=== PATIENT | male | born 1975 | race Caucasian/White ===

== ENCOUNTER 2016-09-01 23:44 | Inpatient (IN) | payer MEDICAID ==
[~2016-09-01] VITALS: Ht 182.9 cm; Wt 93.5 kg
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
[2016-09-02 00:04] LABS: BASOPHIL # 0.1 K/uL (0.0-0.2); BASOPHIL % 0.5 %; EOSINOPHIL # 0.1 K/uL (0.0-0.5); HEMATOCRIT 42.3 % (37.0-53.0); HEMOGLOBIN 14.7 g/dL (12.0-17.0); IMMATURE GRANULOCYTE # 0.3 K/uL (0.0-0.3); IMMATURE GRANULOCYTE % 2.2 %; LYMPHOCYTE # 4.2 K/uL (0.8-4.0); LYMPHOCYTE % 33.7 %; MCH 35.4 pg (27.0-34.0); MCHC 34.8 gm/dL (32.0-36.5); MCV 101.9 fl (83.0-98.0); MONOCYTE # 0.8 K/uL (0.0-1.0); MONOCYTE % 6.4 %; MPV 9.4 fl (9.4-12.4); NEUTROPHIL % 56.2 %; NRBC % 0 /100WBC (0-0.00); PLATELET COUNT 336 K/uL (150-450); RBC 4.15 M/uL (4.00-6.00); RDW-CV 12.8 % (11.9-14.6); WBC 12.4 K/uL (4.0-11.0)
[2016-09-02 00:14] LABS: INR - (THERAPEUTIC) 0.98 (0.92-1.07); PROTIME 10.3 SECONDS (9.8-11.4); PTT 23 SECONDS (25-32)
[2016-09-02 00:25] LABS: BICARBONATE 22.9 mmol/L (18.0-23.0); PCO2 46 mmHg (35-45); PO2 197 mmHg (80-90)
[2016-09-02 00:26] LABS: ANION GAP 10.9 (10.0-19.0); CHLORIDE 110 mMol/L (96-110); POTASSIUM 2.9 mEq/L (3.7-5.1); SODIUM 142 mEq/L (135-145)
[2016-09-02 00:27] LABS: BLOOD UREA NITROGEN 7 mg/dL (6-24); CREATININE 0.9 mg/dL (0.6-1.3)
[2016-09-02 01:08] LABS: BILIRUBIN URINE NEGATIVE (NEGATIVE); BLOOD URINE 25 /UL (NEGATIVE); COLOR URINE YELLOW (YELLOW); GLUCOSE URINE NEGATIVE (NEGATIVE); KETONE URINE NEGATIVE (NEGATIVE); LEUKOCYTES URINE NEGATIVE /UL (NEGATIVE); NITRITE URINE NEGATIVE (NEGATIVE); PROTEIN URINE NEGATIVE (NEGATIVE); SPEC GRAVITY URINE 1.015 (1.003-1.035); TURBIDITY URINE CLEAR (CLEAR); UROBILINOGEN URINE NORMAL (NORMAL)
[2016-09-02 01:15] LABS: WBC URINE NEGATIVE #/HPF (NEGATIVE)
[2016-09-02 01:16] LABS: BACTERIA URINE RARE (NEGATIVE); EPITHELIAL URINE NEGATIVE #/HPF (NEGATIVE)
[2016-09-02 04:36] LABS: BICARBONATE 22.1 mmol/L (18.0-23.0); PCO2 42 mmHg (35-45)
[2016-09-02 04:38] LABS: PO2 92 mmHg (80-90)
[2016-09-02 05:15] LABS: BASOPHIL % 0.2 %; EOSINOPHIL % 0.2 %; HEMATOCRIT 40.2 % (37.0-53.0); IMMATURE GRANULOCYTE # 0.1 K/uL (0.0-0.3); IMMATURE GRANULOCYTE % 0.6 %; LYMPHOCYTE # 3.4 K/uL (0.8-4.0); LYMPHOCYTE % 16.8 %; MCH 35.3 pg (27.0-34.0); MCHC 34.8 gm/dL (32.0-36.5); MCV 101.3 fl (83.0-98.0); MONOCYTE # 2.1 K/uL (0.0-1.0); MONOCYTE % 10.5 %; MPV 9.3 fl (9.4-12.4); NEUTROPHIL # (ANC) 14.5 K/uL (1.4-9.0); NEUTROPHIL % 71.7 %; NRBC % 0 /100WBC (0-0.00); PLATELET COUNT 317 K/uL (150-450); RBC 3.97 M/uL (4.00-6.00); RDW-CV 12.9 % (11.9-14.6)
[2016-09-02 05:16] LABS: WBC 20.2 K/uL (4.0-11.0)
[2016-09-02 05:34] LABS: ALBUMIN 3.4 gm/dL (3.5-5.0); ANION GAP 15.3 (10.0-19.0); CALCIUM 7.9 mg/dL (8.5-10.5); CREATININE 0.9 mg/dL (0.6-1.3); POTASSIUM 3.3 mMol/L (3.7-5.1); TOTAL BILIRUBIN 0.3 mg/dL (0.0-1.5); TOTAL PROTEIN 6.7 g/dL (6.0-8.4)
--- NOTE | 2016-09-02 05:35 | NUR ---
PT. ARRIVED AT ICU 0145 WITH 8.0 ETT 24 @ LIP, SECURED WITH ETAD. ETCO2 34-40. BREATH SOUNDS ARE SLIGHTLY COARSE T/O. SUCTIONED A SMALL AMOUNT OF THICK BLOODY SECRETIONS. FIO2 30% WITH SATS 98-100%. PLAN TO WEAN AND EXTUBATE TODAY.
--- NOTE | 2016-09-02 06:59 | NUR ---
Significant Event: PT ARRIVED TO ICU AT 0200 INTUBATED AND SEDATED ON PROPOFOL AT 100 MCG/KG/MIN. PROPOFOL WEANED TO 50 MCG/KG/MIN AT BY TIME OF SHIFT CHANGE. HIGHLY AGITATED WITH MINIMAL STIMULATION BUT WILL STAY RESTING IF NOT BOTHERED. OVERBREATHES SET VENT RATE. SR ON MONITOR, HR IN 70S, BP WNL, AFEBRILE. OGT TO LIS DRAINING PINK CLEAR LIQUID; UNABLE TO ASSESS MOUTH TO SEE IF PATIENT BIT TOUNGE/LIP/CHEEK, BUT CYNDEE BLOOD IS PRESENT WHEN PERFORMING ORAL CARES. MAI REMAINS IN PLACE AND PATENT. LACERATION ABOVE EYE BROW AND L) EYE CONTINUE TO OOZE BLOOD. Follow up: WEAN SEDATION AND EXTUBATE TODAY. JYOTHI CUMMINGS RN
[2016-09-02] MEDS ORDERED: LEXAPRO10 MG PO (10:30)
--- NOTE | 2016-09-02 17:00 | NUR ---
PT ALERT, D/O AT TIMES BUT RE-ORIENTS EASILY, COMBATIVE AND CIWA SCORING Q1H THIS SHIFT D/T FREQUENT FLUCTUATION FROM 3-22, WITH VAILUM TOTAL OF 25MG GIVEN THIS SHIFT; LAST AT 1700. NORCO AND PERCOCET GIVEN THIS SHIFT WITH LAST DOSES AROUND 1600 AND FENT 100MCG GIVEN NEARLY Q2H FOR SHIFT. C/O PAIN TO L) SHOULDER, L) ANKLE AND NECK, BUT REFUSES TO WEAR L) ARM SLING AND UPPER [place] J. BANNA BAG AND NS IVF RUNNING PER L) WRIST PIV. BS HYPO, FAIR INTAKE, SWALLOWS FINE, MAI DC'D THIS AM D/T PT REQUEST AND ADEQ POST-VOID. FACIAL LACS WITH SUTURES AND OPTH EXAM THIS LATE AFTERNOON AND AUGMENTIN ORDERED FOR 10 DAYS. ENT SAW PT WITH NO CHANGES, LLE BOOT PLACED AND PT TO BE NON-WEIGHT BEARING. VSS, T-MAX 100.7 THIS AFTERNOON.
--- NOTE | 2016-09-03 03:57 | NUR ---
Significant Event: Oriented x3. Does not follow many commands and uncooperative with a lot of cares. CIWA scoring 4-10. Fentanyl and Percocet prn administered for pain control. NS with K running through left wrist IV. Banana bag received yesterday. Uses bedside commode to void. NWB to LLE and wears CAM boot. Refuses to wear left arm sling. Bleeding and significant edema with ecchymosis to left eye. Remains in 1:1. Multiple lacerations to face with sutures. Follow up:
--- NOTE | 2016-09-03 16:17 | NUR ---
Significant Event: Patient is oriented x3. Confused at times. Follows commands. Restless at times. PERRLA. Left eye is bloodshot and sensitive to light. Laceration to FH- sutured and open to air. Laceration to nose- sutured and open to air. Edema to face. Lungs are clear and slightly diminished throughout on RA. SR. Fracture to left clavicle. Bowel sounds are hypoactive. Voids per commode. 2 assist pivot. Richards given for pain. Patient slept much of the shift. CIWA scale <8 throughout shift. 1:1 supervision. Follow up:
--- NOTE | 2016-09-04 03:48 | NUR ---
Significant Event: Patient alert and oriented. Forgetful and repeative at times. VSS on room air. Percocet given x3 last at 0230. Fentanyl given x1 at 0230. CIWA max of 6. Patient agitated and restless at times. Pull at cords. Remains 1:1. Rested well throughout shift. Generally cooperative with cares. Follow up: continue to monitor
[2016-09-04 05:35] LABS: BASOPHIL # 0.1 K/uL (0.0-0.2); BASOPHIL % 0.6 %; EOSINOPHIL # 0.6 K/uL (0.0-0.5); EOSINOPHIL % 5.2 %; HEMATOCRIT 37.9 % (37.0-53.0); IMMATURE GRANULOCYTE # 0.1 K/uL (0.0-0.3); IMMATURE GRANULOCYTE % 0.5 %; LYMPHOCYTE % 18.6 %; MCH 34.9 pg (27.0-34.0); MCHC 34.3 gm/dL (32.0-36.5); MCV 101.9 fl (83.0-98.0); MONOCYTE # 1.3 K/uL (0.0-1.0); MONOCYTE % 11.8 %; MPV 9.6 fl (9.4-12.4); NEUTROPHIL # (ANC) 6.7 K/uL (1.4-9.0); NEUTROPHIL % 63.3 %; NRBC % 0 /100WBC (0-0.00); PLATELET COUNT 283 K/uL (150-450); RBC 3.72 M/uL (4.00-6.00); RDW-CV 13.1 % (11.9-14.6); WBC 10.6 K/uL (4.0-11.0)
[2016-09-04 05:50] LABS: ALBUMIN 2.7 gm/dL (3.5-5.0); BLOOD UREA NITROGEN 7 mg/dL (6-24); CALCIUM 8.4 mg/dL (8.5-10.5); CHLORIDE 112 mMol/L (96-110); CO2 26 mMol/L (22-32); CREATININE 0.8 mg/dL (0.6-1.3); PHOSPHORUS 2.6 mg/dL (2.5-4.9); SODIUM 143 mMol/L (135-145)
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
--- NOTE | 2016-09-05 04:29 | NUR ---
Significant Event: Patient A/O x 3. Perrl. Denies N/T. Denies blurry vision. Pain to left clavicle, percocet given for pain, relief noted. Follows commands. LLE in [place], TTWB. LUE Non-weight bearing. Uses walker to ambulate to bathroom. BS active. PIV to right wrist running NS KCL at 100 ml/hr. VSS. Follow up: Possible D/C today after seen by opthamologist.
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
--- NOTE | 2016-09-05 14:23 | NUR ---
Significant Event: Patient A/O X3. Impaired recent memory. Forgetful at times. Repititive with questions at times. Denies N/T. Follows commands. Moves all extremities spontaneously. Denies vision difficulties. VSS. HTN. Afebrile. L) lower extremitiy edema noted. Room air with sats in the high 90S. LS clear and diminished. Regular diet. Decreased appetite. Voids per toilet. BS active x4. No BM this shift. Hematoma to L) eye. Abrasion to left forehead and lip. CAM boot to left ankle when up and ambulating. TTWB to the left LE. Sling to left arm/shoulder PRN. NWB. R) wrist PIV SLL. SBA using walker. Reinforced to patient his weight bearing status. Percocet X1 tab given twice for pain/headache. Some relief noted. Follow up: Home this afternoon
[2016-09-05] MEDS ORDERED: AMOXICILLIN500 M1 PO (16:04)
[2016-09-05] MEDS ORDERED: NORCO 5-325 TA1 EACH PO (16:07)
== END 2016-09-05 16:33 | disposition disaster alternative care site (69) | DRG 914 ==
LOC: GACC 23:44 → GICU 09-02 00:37
PROVIDERS: Emergency Medicine; Surgery; ADMIT Surgery
DX: S09.90XA Unspecified injury of head, initial encounter (principal); F32.9 Major depressive disorder, single episode, unspecified; S01.511A Laceration without foreign body of lip, initial encounter; S42.002A Fracture of unspecified part of left clavicle, initial encounter for closed fracture; S02.19XA Other fracture of base of skull, initial encounter for closed fracture; S02.2XXA Fracture of nasal bones, initial encounter for closed fracture; S82.62XA Displaced fracture of lateral malleolus of left fibula, initial encounter for closed fracture; V29.9XXA Motorcycle rider (driver) (passenger) injured in unspecified traffic accident, initial encounter
CPT/HCPCS: G0390; G0480; J0690; J1630; J1650; J2704; J3010; J3411; J3475; J3480; J7030; L0172; Q9967

== ENCOUNTER → 2016-09-01 | Outpatient (CLI) | payer MEDICAID ==
[~2016-09-01] MED LIST: AMOXICILLIN500 M1 PO; LEXAPRO10 MG PO; NORCO 5-325 TA1 EACH PO
== END | disposition disaster alternative care site (69) ==
LOC: GAMB 23:21
DX: S06.9X9A Unspecified intracranial injury with loss of consciousness of unspecified duration, initial encounter (principal); H02.846 Edema of left eye, unspecified eyelid; R06.83 Snoring; R40.20 Unspecified coma; X58.XXXA Exposure to other specified factors, initial encounter
CPT/HCPCS: A0422; A0425; A0433; J7030

== ENCOUNTER 2016-09-22 08:56 | Emergency (ER) | payer MEDICAID ==
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
[2016-09-22 10:37] LABS: BASOPHIL % 0.3 %; EOSINOPHIL # 0.1 K/uL (0.0-0.5); EOSINOPHIL % 0.8 %; HEMOGLOBIN 13.6 g/dL (12.0-17.0); IMMATURE GRANULOCYTE # 0.1 K/uL (0.0-0.3); IMMATURE GRANULOCYTE % 0.4 %; LYMPHOCYTE # 2.9 K/uL (0.8-4.0); LYMPHOCYTE % 22.8 %; MCH 35.3 pg (27.0-34.0); MCHC 34.9 gm/dL (32.0-36.5); MCV 101.3 fl (83.0-98.0); MONOCYTE # 1.4 K/uL (0.0-1.0); MONOCYTE % 11.3 %; NEUTROPHIL # (ANC) 8.2 K/uL (1.4-9.0); NEUTROPHIL % 64.4 %; NRBC % 0 /100WBC (0-0.00); PLATELET COUNT 422 K/uL (150-450); RBC 3.85 M/uL (4.00-6.00); RDW-CV 12.6 % (11.9-14.6); WBC 12.7 K/uL (4.0-11.0)
[2016-09-22 10:52] LABS: ALBUMIN 3.5 gm/dL (3.5-5.0); ANION GAP 10.4 (10.0-19.0); CALCIUM 9.3 mg/dL (8.5-10.5); CREATININE 1.1 mg/dL (0.6-1.3); POTASSIUM 3.4 mMol/L (3.7-5.1); TOTAL PROTEIN 7.4 g/dL (6.0-8.4)
[2016-09-22 10:56] LABS: TOTAL BILIRUBIN 0.6 mg/dL (0.0-1.5)
== END 2016-09-22 12:24 | disposition disaster alternative care site (69) ==
LOC: GMED 08:56
PROVIDERS: Family Medicine
PROC: 2W3QX1Z Immobilization of Right Lower Leg using Splint (ICD-10-PCS; principal; 2016-09-22)
DX: G89.18 Other acute postprocedural pain (principal); M25.512 Pain in left shoulder; M25.572 Pain in left ankle and joints of left foot
CPT/HCPCS: J1170; J2270; J3360